=== PATIENT | male | born 1985 | race Two or more races ===

== ENCOUNTER 2021-02-12 18:27 | Emergency (ER) | payer BC ==
[~2021-02-12] VITALS: Ht 165.1 cm; Wt 72.6 kg
--- NOTE | 2021-02-12 19:00 | NUR ---
Pt cc llq pain radiating to back and back of left leg. Pt. has hx of sciatica, he says it feels worse than normal. Vss. Will continue to monitor.
--- NOTE | 2021-02-12 20:26 | NUR ---
patient taken to ct
[2021-02-12 20:35] LABS: *BILIRUBIN,URIN NEGATIVE (NEGATIVE); *BLOOD, URINE NEGATIVE (NEGATIVE); *CLARITY,URINE CLEAR (CLEAR); *COLOR,URINE YELLOW (YELLOW); *KETONES,URINE 1+ (NEGATIVE); LEUKOCYTE ESTERASE ,URINE NEGATIVE (NEGATIVE); NITRITE, URINE NEGATIVE (NEGATIVE); UGLUCOSE NEGATIVE (NEGATIVE)
[2021-02-12 20:39] LABS: BACTERIA,URINE NONE SEEN /HPF (NONE SEEN); MUCUS,URINE FEW /LPF (0-FEW); RBC,URINE 0-3 /HPF (0-3); SQUAMOUS EPITHELIAL CELL,UR NONE SEEN /HPF (NONE SEEN); WBC,URINE 0-3 /HPF (0-3)
--- NOTE | 2021-02-12 20:45 | NUR ---
Pt back to ER from CT.
[2021-02-12] MEDS ORDERED: HYDROMORPHONE 1 MG/1 ML DISP.SYRIN IM ONE (21:15)
[2021-02-12] MEDS ORDERED: ONDANSETRON 4 MG/2 ML VIAL IM ONE (21:15)
--- NOTE | 2021-02-12 21:30 | NUR ---
Patient discharged to home in stable condition. Written and verbal after care instructions given. Patient verbalizes understanding of instructions. Stressed follow up or return to ER for worsening s/s. Patient out of ER with steady gait, no acute signs of distress, VSS, all belongings taken.
[2021-02-12] MEDS ORDERED: HYDROMORPHONE 2 MG/1 ML DISP.SYRIN ONE (21:32)
[2021-02-12] MEDS ORDERED: ONDANSETRON 4 MG/2 ML VIAL ONE (21:32)
[2021-02-13 00:52] VITALS: BP 121/84
== END 2021-02-13 00:52 | disposition home or self-care (01) ==
LOC: ER 18:36
DX: M54.9 Dorsalgia, unspecified (principal); R10.9 Unspecified abdominal pain; M54.30 Sciatica, unspecified side
CPT/HCPCS: 74176; 81001; 96372 ×2; 99284; J1170; J2405; A4663

== ENCOUNTER 2021-10-26 22:55 | Emergency (ER) | payer BC ==
[~2021-10-26] VITALS: Ht 172.7 cm; Wt 63.5 kg
--- NOTE | 2021-10-26 23:09 | NUR ---
Dr. Rogers at bedside, MSE in progress.
[2021-10-26] MEDS: THIAMINE HCL 100 MG TABLET PO ONE (23:31)
[2021-10-26] MEDS: CHLORDIAZEPOXIDE HCL 25 MG CAPSULE PO ONE (23:31)
[2021-10-26 23:35] LABS: HEMATOCRIT 41.2 % (36.7-47.1); MEAN CORPUSCULAR HEMOGLOBIN 31.7 uug (23.8-33.4); MEAN CORPUSCULAR VOLUME 91.5 fL (73.0-96.2); PLATELET COUNT (AUTO) 161 K/uL (152-348)
[2021-10-26] MEDS ORDERED: THIAMINE HCL 100 MG TABLET ONE (23:39)
[2021-10-26] MEDS ORDERED: CHLORDIAZEPOXIDE HCL 25 MG CAPSULE ONE (23:39)
[2021-10-26 23:41] LABS: CREATININE 0.8 mg/dL (0.6-1.3); POTASSIUM 3.7 mmol/L (3.5-5.1)
[2021-10-26 23:47] LABS: BILIRUBIN,DIRECT 0.3 mg/dL (0.0-0.2); BILIRUBIN,TOTAL 0.7 mg/dL (0.2-1.0)
[2021-10-27] MEDS ORDERED: CHLO25CA22 PO (00:35)
--- NOTE | 2021-10-27 00:52 | NUR ---
Patient discharged to home in stable condition. Written and verbal after care instructions given. Patient verbalizes understanding of instructions. Stressed follow up or return to ER for worsening s/s. pt ambulated with steady gait. Denies pain. No SOB. no chest pain. AOx4.
[2021-10-27 00:54] VITALS: BP 129/70
== END 2021-10-27 00:54 | disposition home or self-care (01) ==
LOC: ER 23:04
DX: F10.229 Alcohol dependence with intoxication, unspecified (principal); K70.10 Alcoholic hepatitis without ascites; Y90.8 Blood alcohol level of 240 mg/100 ml or more
CPT/HCPCS: 36415; 83690; 83735; 85025; A4663; G0480

== ENCOUNTER 2023-07-01 05:01 | Inpatient (IN) | payer BC ==
[~2023-07-01] VITALS: Ht 165.1 cm; Wt 63.5 kg
[~2023-07-01 05:01] MED LIST: CHLO25CA22 PO
[2023-07-01 05:30] LABS: BASOPHILS # (AUTO) 0.2 K/UL (0.0-0.2); BASOPHILS % (AUTO) 2.3 % (0.0-2.0); EOSINOPHILS # (AUTO) 0.4 K/uL (0.0-0.7); EOSINOPHILS % (AUTO) 4.8 % (0.0-7.0); HEMATOCRIT 35.4 % (36.7-47.1); HEMOGLOBIN 12.2 g/dL (12.5-16.3); LYMPHOCYTES # (AUTO) 5.3 K/uL (0.8-4.8); LYMPHOCYTES % (AUTO) 58.8 % (20.5-51.5); MEAN CORPUSCULAR HEMOGLOBIN 34.1 uug (23.8-33.4); MEAN CORPUSCULAR HGB CONC 35 g/dL (32.5-36.3); MEAN CORPUSCULAR VOLUME 98.8 fL (73.0-96.2); MONOCYTES # (AUTO) 0.5 K/uL (0.1-1.30); MONOCYTES % (AUTO) 5.9 % (0.0-11.0); NEUTROPHILS # (AUTO) 2.5 K/uL (1.8-8.9); NEUTROPHILS % (AUTO) 28.2 % (38.5-71.5); PLATELET COUNT (AUTO) 85 K/uL (152-348); RED BLOOD CELL COUNT(AUTO) 3.59 MIL/uL (4.06-5.63); RED CELL DISTRIBUTION WIDTH 12.3 % (12.1-16.2)
[2023-07-01] MEDS ORDERED: IV NORMAL SALINE 1000 ML BAG IV ONE ×3 (05:30→16:00)
[2023-07-01 05:44] LABS: DIFFERENTIAL COMMENT 1
[2023-07-01 05:51] LABS: BILIRUBIN,TOTAL 1.6 mg/dL (0.2-1.0); CALCIUM 8.5 mg/dL (8.5-10.1); CREATININE 0.7 mg/dL (0.6-1.3); TOTAL PROTEIN, SERUM 9.7 g/dL (6.4-8.2)
[2023-07-01 05:56] LABS: POTASSIUM 2.3 mmol/L (3.5-5.1)
[2023-07-01] MEDS ORDERED: POTASSIUM BICARBONATE/CIT AC 25 MEQ TABLET.EFF PO ONE (06:00)
[2023-07-01 06:06] LABS: LACTIC ACID 4.6 mmol/L (0.4-2.0)
[2023-07-01] MEDS ORDERED: ONDANSETRON 4 MG/2 ML VIAL IV ONE (06:15)
[2023-07-01] MEDS ORDERED: PANTOPRAZOLE SODIUM IV 40 MG in IV DEXTROSE 5% 100 ML IV ONE (06:15)
[2023-07-01] MEDS ORDERED: POTASSIUM CHLORIDE 50 ML ONE ×2 (06:19→06:38)
[2023-07-01] MEDS ORDERED: POTASSIUM BICARBONATE/CIT AC 25 MEQ TABLET.EFF ONE (06:20)
[2023-07-01] MEDS ORDERED: ONDANSETRON 4 MG/2 ML VIAL ONE (06:20)
[2023-07-01] MEDS ORDERED: PANTOPRAZOLE SODIUM 40 MG VIAL ONE (06:26)
[2023-07-01 06:31] LABS: ANISOCYTOSIS 1+; EOSINOPHILS % (MANUAL) 6 % (0-8); LYMPHOCYTES % (MANUAL) 56 % (20-40); MONOCYTES % (MANUAL) 4 % (2-10); NEUTROPHILS % (MANUAL) 34 % (42-75); PLATELET ESTIMATE MARKED DECREASED
[2023-07-01] MEDS: POTASSIUM CHLORIDE 50 ML IV SCH ×2 (06:45→06:47)
[2023-07-01] MEDS ORDERED: THIAMINE HCL 200 MG/2 ML VIAL IV ONE (07:00)
[2023-07-01] MEDS ORDERED: MAGNESIUM SULFATE/D5W 100 ML IV ONE (07:00)
[2023-07-01] MEDS ORDERED: MAGNESIUM SULFATE/D5W 100 ML ONE (07:06)
[2023-07-01 07:07] LABS: *BLOOD, URINE NEGATIVE (NEGATIVE); *CLARITY,URINE CLEAR (CLEAR); *COLOR,URINE Brown (YELLOW); *KETONES,URINE TRACE (NEGATIVE); *PROTEIN,URINE 2+ (NEGATIVE); LEUKOCYTE ESTERASE ,URINE NEGATIVE (NEGATIVE); NITRITE, URINE NEGATIVE (NEGATIVE); PH,URINE 5.5 (5.0-8.0); UGLUCOSE NEGATIVE (NEGATIVE)
[2023-07-01] MEDS ORDERED: THIAMINE HCL 200 MG/2 ML VIAL ONE (07:09)
[2023-07-01 07:10] LABS: *BILIRUBIN,URIN 1+ (NEGATIVE)
[2023-07-01 07:14] LABS: *AMPHETAMINE, URINE NEGATIVE (NEGATIVE); *BARBITURATE, URINE NEGATIVE (NEGATIVE); *BENZODIAZEPINE, URINE NEGATIVE (NEGATIVE); *CANNABINOID, URINE POSITIVE (NEGATIVE); *COCCAINE, URINE NEGATIVE (NEGATIVE); *OPIATE, URINE NEGATIVE (NEGATIVE); *PHENCYCLIDINE SCREEN,URINE NEGATIVE (NEGATIVE)
[2023-07-01 07:22] LABS: FENTANYL, URINE NEGATIVE (NEGATIVE)
[2023-07-01 07:37] LABS: CALCIUM OXALATE CRYSTALS,UR FEW /HPF (NONE SEEN); WBC,URINE NONE SEEN /HPF (0-3)
[2023-07-01] MEDS ORDERED: DEXTROSE 5 %-0.45 % NACL 500 ML IV.SOLN IV ONE (08:15)
[2023-07-01 09:14] LABS: CALCIUM 7.8 mg/dL (8.5-10.1); CARBON DIOXIDE 22 mmol/L (21-32); CHLORIDE 102 mmol/L (98-107); CREATININE 0.6 mg/dL (0.6-1.3); GLUCOSE 116 mg/dL (74-106); SODIUM SERUM 138 mmol/L (136-145); UREA NITROGEN, BLOOD 5 mg/dL (7-18)
[2023-07-01] MEDS ORDERED: LORAZEPAM 2 MG/1 ML VIAL ONE (13:47)
[2023-07-01] MEDS ORDERED: LORAZEPAM 2 MG/1 ML VIAL IV ONE (14:00)
[2023-07-01] MEDS ORDERED: MAG HYDROX/AL HYDROX/SIMETH 30 ML LIQUID UDC PO PRN (16:30)
[2023-07-01] MEDS ORDERED: ACETAMINOPHEN 325 MG TABLET PO PRN (16:30)
[2023-07-01] MEDS ORDERED: ONDANSETRON 4 MG/2 ML VIAL IV PRN (16:30)
[2023-07-01] MEDS ORDERED: POTASSIUM CHLORIDE 20 MEQ in IV 1/2NS 1000 ML 1,000 ML IV PRN (16:30)
[2023-07-01 17:00] VITALS: BP 131/80; TEMP 97.9; O2SAT 99
[2023-07-01 20:00] VITALS: BP 118/82; TEMP 97.9; O2SAT 95
[2023-07-01] MEDS: MORPHINE SULFATE 2 MG/1 ML DISP.SYRIN IV PRN ×2 (23:29→23:32)
[2023-07-01] MEDS: LORAZEPAM 2 MG/1 ML VIAL IV PRN (23:41)
[2023-07-02] VITALS: BP 107/64; TEMP 98.9; O2SAT 98
[2023-07-02 04:00] VITALS: BP 114/80; TEMP 99.2; O2SAT 97
[2023-07-02] MEDS: PANTOPRAZOLE SODIUM 40 MG TABLET.DR PO SCH (06:15)
[2023-07-02 06:38] LABS: BASOPHILS % (AUTO) 1.4 % (0.0-2.0); EOSINOPHILS # (AUTO) 0.1 K/uL (0.0-0.7); EOSINOPHILS % (AUTO) 2.6 % (0.0-7.0); HEMATOCRIT 31.6 % (36.7-47.1); HEMOGLOBIN 10.8 g/dL (12.5-16.3); LYMPHOCYTES # (AUTO) 0.8 K/uL (0.8-4.8); LYMPHOCYTES % (AUTO) 21.9 % (20.5-51.5); MEAN CORPUSCULAR HEMOGLOBIN 33.6 uug (23.8-33.4); MEAN CORPUSCULAR HGB CONC 34 g/dL (32.5-36.3); MEAN CORPUSCULAR VOLUME 98.1 fL (73.0-96.2); MONOCYTES # (AUTO) 0.4 K/uL (0.1-1.30); MONOCYTES % (AUTO) 11.6 % (0.0-11.0); NEUTROPHILS # (AUTO) 2.3 K/uL (1.8-8.9); NEUTROPHILS % (AUTO) 62.5 % (38.5-71.5); PLATELET COUNT (AUTO) 55 K/uL (152-348); RED BLOOD CELL COUNT(AUTO) 3.22 MIL/uL (4.06-5.63); RED CELL DISTRIBUTION WIDTH 12.1 % (12.1-16.2); WHITE BLOOD COUNT (AUTO) 3.6 K/uL (3.6-10.2)
[2023-07-02 06:50] LABS: DIFFERENTIAL COMMENT 1
[2023-07-02 07:29] LABS: ALBUMIN 3.3 g/dL (3.4-5.0); BILIRUBIN,TOTAL 2.7 mg/dL (0.2-1.0); CALCIUM 7.9 mg/dL (8.5-10.1); CREATININE 0.7 mg/dL (0.6-1.3); MAGNESIUM 1.8 mg/dL (1.8-2.4); PHOSPHOROUS 2.3 mg/dL (2.5-4.9); POTASSIUM 3.4 mmol/L (3.5-5.1); TOTAL PROTEIN, SERUM 8.3 g/dL (6.4-8.2)
[2023-07-02] MEDS: THIAMINE HCL 100 MG TABLET PO SCH (08:20)
[2023-07-02] MEDS: FOLIC ACID 1 MG TABLET PO SCH (08:20)
[2023-07-02] MEDS: MULTIVITAMINS,THERAPEUTIC TABLET PO SCH (08:20)
[2023-07-02] MEDS: LORAZEPAM 2 MG/1 ML VIAL IV PRN ×2 (08:20→12:59)
[2023-07-02] MEDS ORDERED: POTASSIUM CHLORIDE 20 MEQ TAB.PRT.SR PO ONE (11:00)
[2023-07-02] MEDS ORDERED: POTASSIUM PHOSPHATE MM 15 MMOL in IV NORMAL SALINE 250 ML IV ONE (11:00)
[2023-07-02 11:47] VITALS: BP 125/77; TEMP 98.3; O2SAT 97
[2023-07-02] MEDS ORDERED: LORAZEPAM 2 MG/1 ML VIAL IV ONE (14:36)
[2023-07-02 15:55] VITALS: BP 133/77; TEMP 98.7; O2SAT 99
[2023-07-02] MEDS ORDERED: HALOPERIDOL LACTATE 5 MG/1 ML VIAL IM PRN (16:45)
[2023-07-02] MEDS ORDERED: HALOPERIDOL LACTATE 5 MG/1 ML VIAL IM ONE (19:30)
[2023-07-02 21:25] VITALS: BP 123/99; TEMP 98.6; O2SAT 98
[2023-07-03] MEDS: LORAZEPAM 2 MG/1 ML VIAL IV PRN ×3 (00:16→23:11)
[2023-07-03] MEDS: MORPHINE SULFATE 2 MG/1 ML DISP.SYRIN IV PRN (00:24)
[2023-07-03] MEDS: PANTOPRAZOLE SODIUM 40 MG TABLET.DR PO SCH (06:07)
[2023-07-03 07:08] LABS: DIFFERENTIAL COMMENT 1; EOSINOPHILS % (AUTO) 1.3 % (0.0-7.0); HEMATOCRIT 33.7 % (36.7-47.1); HEMOGLOBIN 11.4 g/dL (12.5-16.3); LYMPHOCYTES # (AUTO) 0.8 K/uL (0.8-4.8); LYMPHOCYTES % (AUTO) 22.4 % (20.5-51.5); MEAN CORPUSCULAR HEMOGLOBIN 33.4 uug (23.8-33.4); MEAN CORPUSCULAR HGB CONC 34 g/dL (32.5-36.3); MEAN CORPUSCULAR VOLUME 98.7 fL (73.0-96.2); MONOCYTES # (AUTO) 0.4 K/uL (0.1-1.30); MONOCYTES % (AUTO) 11.4 % (0.0-11.0); NEUTROPHILS # (AUTO) 2.4 K/uL (1.8-8.9); NEUTROPHILS % (AUTO) 63.9 % (38.5-71.5); PLATELET COUNT (AUTO) 54 K/uL (152-348); RED BLOOD CELL COUNT(AUTO) 3.42 MIL/uL (4.06-5.63); RED CELL DISTRIBUTION WIDTH 12.2 % (12.1-16.2); WHITE BLOOD COUNT (AUTO) 3.7 K/uL (3.6-10.2)
[2023-07-03 07:28] LABS: ALBUMIN 3.8 g/dL (3.4-5.0); BILIRUBIN,TOTAL 4.1 mg/dL (0.2-1.0); CALCIUM 8.9 mg/dL (8.5-10.1); CREATININE 0.7 mg/dL (0.6-1.3); MAGNESIUM 1.9 mg/dL (1.8-2.4); PHOSPHOROUS 2.7 mg/dL (2.5-4.9); TOTAL PROTEIN, SERUM 8.8 g/dL (6.4-8.2)
[2023-07-03 07:48] VITALS: BP 148/68; TEMP 98.2; O2SAT 99
[2023-07-03] MEDS: THIAMINE HCL 100 MG TABLET PO SCH (08:26)
[2023-07-03] MEDS: FOLIC ACID 1 MG TABLET PO SCH (08:26)
[2023-07-03] MEDS: MULTIVITAMINS,THERAPEUTIC TABLET PO SCH (08:26)
[2023-07-03] MEDS ORDERED: POTASSIUM CHLORIDE 20 MEQ TAB.PRT.SR PO ONE (09:15)
[2023-07-03 11:37] LABS: LYMPHOCYTES % (MANUAL) 18 % (20-40); MONOCYTES % (MANUAL) 9 % (2-10); NEUTROPHILS % (MANUAL) 73 % (42-75); PLATELET ESTIMATE MARKED DECREASED
[2023-07-03 11:54] VITALS: BP 138/64; TEMP 98.6; O2SAT 100
[2023-07-03 20:00] VITALS: BP 127/83; TEMP 98.3; O2SAT 99
[2023-07-04 04:00] VITALS: BP 137/87; TEMP 98.6; O2SAT 100
[2023-07-04] MEDS: PANTOPRAZOLE SODIUM 40 MG TABLET.DR PO SCH (06:01)
[2023-07-04 07:32] LABS: HEMOGLOBIN 11.8 g/dL (12.5-16.3)
[2023-07-04 07:45] LABS: ALBUMIN 3.6 g/dL (3.4-5.0); BASOPHILS % (AUTO) 1.3 % (0.0-2.0); BILIRUBIN,TOTAL 3.6 mg/dL (0.2-1.0); CALCIUM 9.3 mg/dL (8.5-10.1); CREATININE 0.7 mg/dL (0.6-1.3); DIFFERENTIAL COMMENT 0; EOSINOPHILS # (AUTO) 0.2 K/uL (0.0-0.7); EOSINOPHILS % (AUTO) 4.6 % (0.0-7.0); LYMPHOCYTES # (AUTO) 0.8 K/uL (0.8-4.8); LYMPHOCYTES % (AUTO) 22.3 % (20.5-51.5); MEAN CORPUSCULAR HEMOGLOBIN 34.3 uug (23.8-33.4); MEAN CORPUSCULAR HGB CONC 35 g/dL (32.5-36.3); MEAN CORPUSCULAR VOLUME 98.9 fL (73.0-96.2); MONOCYTES # (AUTO) 0.4 K/uL (0.1-1.30); MONOCYTES % (AUTO) 11.1 % (0.0-11.0); NEUTROPHILS # (AUTO) 2.3 K/uL (1.8-8.9); NEUTROPHILS % (AUTO) 60.7 % (38.5-71.5); PHOSPHOROUS 3.5 mg/dL (2.5-4.9); PLATELET COUNT (AUTO) 69 K/uL (152-348); POTASSIUM 3.4 mmol/L (3.5-5.1); RED BLOOD CELL COUNT(AUTO) 3.44 MIL/uL (4.06-5.63); RED CELL DISTRIBUTION WIDTH 12.2 % (12.1-16.2); WHITE BLOOD COUNT (AUTO) 3.7 K/uL (3.6-10.2)
[2023-07-04 08:00] VITALS: BP 115/77; TEMP 98.7; O2SAT 99
[2023-07-04] MEDS ORDERED: POTASSIUM CHLORIDE 20 MEQ TAB.PRT.SR PO ONE (08:15)
[2023-07-04] MEDS: MULTIVITAMINS,THERAPEUTIC TABLET PO SCH (08:24)
[2023-07-04] MEDS: FOLIC ACID 1 MG TABLET PO SCH (08:24)
[2023-07-04] MEDS: THIAMINE HCL 100 MG TABLET PO SCH (08:24)
[2023-07-04 11:24] LABS: EOSINOPHILS % (MANUAL) 5 % (0-8); LYMPHOCYTES % (MANUAL) 24 % (20-40); MONOCYTES % (MANUAL) 4 % (2-10); NEUTROPHILS % (MANUAL) 67 % (42-75); PLATELET ESTIMATE MARKED DECREASED
== END 2023-07-04 11:00 | disposition home or self-care (01) | DRG 280 ==
LOC: ER 05:03 → TELE3 16:18 → MEDSURG3 07-03 09:20
PROVIDERS: ADMIT Internal Medicine; ATTEND Internal Medicine
DX: K70.10 Alcoholic hepatitis without ascites (principal); F10.231 Alcohol dependence with withdrawal delirium; E87.20 Acidosis, unspecified; E83.39 Other disorders of phosphorus metabolism; E87.6 Hypokalemia; G31.2 Degeneration of nervous system due to alcohol; F10.229 Alcohol dependence with intoxication, unspecified; Y90.7 Blood alcohol level of 200-239 mg/100 ml; F12.90 Cannabis use, unspecified, uncomplicated; K76.0 Fatty (change of) liver, not elsewhere classified; R00.2 Palpitations; R00.0 Tachycardia, unspecified
CPT/HCPCS: 36415; 70030-TC; 71045; 83605; 83690; 83735; 84100; 84484; 85025; 85730; 87040; 93005; A4606; A4663; C9113; G0378; G0480; J1630; J2060; J2270; J2405; J3411; J3475; J3480; J3490; J7040

== ENCOUNTER 2023-09-25 11:17 | Emergency (ER) | payer BC ==
[~2023-09-25] VITALS: Ht 165.1 cm; Wt 55.3 kg
[2023-09-25] MEDS: THIAMINE HCL 100 MG TABLET PO ONE (12:15)
[2023-09-25 12:46] LABS: BASOPHILS % (AUTO) 0.7 % (0.0-2.0); EOSINOPHILS # (AUTO) 0.2 K/uL (0.0-0.7); EOSINOPHILS % (AUTO) 4.4 % (0.0-7.0); HEMATOCRIT 36.2 % (36.7-47.1); HEMOGLOBIN 12.3 g/dL (12.5-16.3); LYMPHOCYTES # (AUTO) 1.2 K/uL (0.8-4.8); LYMPHOCYTES % (AUTO) 32.8 % (20.5-51.5); MEAN CORPUSCULAR HEMOGLOBIN 32.8 uug (23.8-33.4); MEAN CORPUSCULAR HGB CONC 34 g/dL (32.5-36.3); MEAN CORPUSCULAR VOLUME 96.6 fL (73.0-96.2); MONOCYTES # (AUTO) 0.3 K/uL (0.1-1.30); MONOCYTES % (AUTO) 9.2 % (0.0-11.0); NEUTROPHILS # (AUTO) 1.9 K/uL (1.8-8.9); NEUTROPHILS % (AUTO) 52.9 % (38.5-71.5); PLATELET COUNT (AUTO) 55 K/uL (152-348); RED BLOOD CELL COUNT(AUTO) 3.74 MIL/uL (4.06-5.63); RED CELL DISTRIBUTION WIDTH 12.6 % (12.1-16.2); WHITE BLOOD COUNT (AUTO) 3.7 K/uL (3.6-10.2)
[2023-09-25 12:54] LABS: AMMONIA 24 umol/L (11-32)
[2023-09-25 13:00] LABS: DIFFERENTIAL COMMENT 1
[2023-09-25 13:30] LABS: ALANINE AMINOTRANSFERASE 86 U/L (16-63); ALKALINE PHOSPHATASE 137 U/L (50-136); ASPARTATE AMINOTRANSFERASE 254 U/L (15-37); BILIRUBIN,DIRECT 1.8 mg/dL (0.0-0.2); BILIRUBIN,TOTAL 2.9 mg/dL (0.2-1.0); CALCIUM 9.2 mg/dL (8.5-10.1); CARBON DIOXIDE 26 mmol/L (21-32); CHLORIDE 100 mmol/L (98-107); CREATININE 0.6 mg/dL (0.6-1.3); GLUCOSE 86 mg/dL (74-106); LIPASE 66 U/L (16-77); POTASSIUM 3.2 mmol/L (3.5-5.1); SODIUM SERUM 134 mmol/L (136-145); TOTAL PROTEIN, SERUM 9.7 g/dL (6.4-8.2); UREA NITROGEN, BLOOD 5 mg/dL (7-18)
[2023-09-25] MEDS ORDERED: THIAMINE HCL 100 MG TABLET ONE (13:54)
[2023-09-25] MEDS ORDERED: POTASSIUM BICARBONATE/CIT AC 25 MEQ TABLET.EFF ONE (13:54)
[2023-09-25] MEDS: POTASSIUM BICARBONATE/CIT AC 25 MEQ TABLET.EFF PO ONE (13:55)
[2023-09-25] MEDS ORDERED: POTA20TA29 PO (15:27)
[2023-09-25] MEDS ORDERED: CHLO25CA22 PO (15:27)
[2023-09-25 17:11] VITALS: BP 125/96; TEMP 97.9; O2SAT 98
== END 2023-09-25 16:05 | disposition home or self-care (01) ==
LOC: ER 11:17
DX: K70.10 Alcoholic hepatitis without ascites (principal); E87.6 Hypokalemia; Z79.899 Other long term (current) drug therapy
CPT/HCPCS: 36415; 74021; 83690; 83735; 85025; 85730; A4606; A4663